=== PATIENT | male | born 1975 | race Two or more races ===

== ENCOUNTER 2022-09-06 19:05 | Emergency (ER) | payer SELFPAY ==
[~2022-09-06] VITALS: Ht 167.6 cm; Wt 100.0 kg
[2022-09-06 19:15] VITALS: BP 153/97
[2022-09-06] MEDS ORDERED: cloNIDine HCL 0.1 MG TAB PO ONE (20:00)
[2022-09-06 21:31] LABS: Basophils # (auto) 0 10 ^3/uL (0-0.2); Basophils % (auto) 0.2 % (0.0-2.0); Eosinophils # (auto) 0.1 10 ^3/uL (0-0.8); Eosinophils % (auto) 1.1 % (0.0-7.0); Hematocrit 45.6 % (41.0-53.0); Hemoglobin 15.3 g/dL (13.5-17.5); Lymphocytes # (auto) 2.6 10 ^3/uL (0.4-5.4); Lymphocytes % (auto) 23.8 % (10.0-50.0); Mean Corpuscular Hemoglobin 28.2 pg (28.0-32.0); Mean Corpuscular Hgb Conc. 33.6 g/dL (32.0-36.0); Mean Corpuscular Volume 83.7 fL (80.0-100.0); Monocytes # (auto) 0.4 10 ^3/uL (0-1.3); Monocytes % (auto) 3.9 % (0.0-12.0); Neutrophils # (auto) 7.9 10 ^3/uL (1.6-8.6); Nucleated Red Blood Cells % 0.1 %; Red Blood Cells 5.45 10^6/uL (4.5-5.90); Red Cell Distribution Width 13.8 % (11.8-14.3); White Blood Cell 11.1 10^3/uL (4.4-10.8)
[2022-09-06 21:39] LABS: Albumin 4.3 g/dL (3.4-5.0); Potassium 3.9 mmol/L (3.5-5.1)
[2022-09-06 21:44] LABS: BUN/Creatinine Ratio 14.6; Bilirubin, Total 0.7 mg/dL (0.2-1.0)
== END 2022-09-07 00:55 | disposition home or self-care (01) ==
LOC: ER 19:05 → EDBD 19:05 → ER 09-07 00:55
DX: R07.89 Other chest pain (principal)
CPT/HCPCS: 36415; 80053; 83880; 84484; 85025; 93005